=== PATIENT | female | born 1975 | race Caucasian/White ===

== ENCOUNTER 2016-12-17 06:33 | Day surgery (SDC) | payer OTHER ==
[~2016-12-17 06:33] MED LIST: Buffered Lidocaine 0.9% SYRIN* 5 ML/SYR SYRINGE INTRADERM ONE; Buffered Lidocaine 0.9% SYRIN* 5 ML/SYR SYRINGE ONE; Famotidine IV* 10 MG/ML 2 ML (20 mg) IV ONE; Famotidine IV* 10 MG/ML 2 ML (20 mg) ONE
[2016-12-17 06:44] LABS: Manual Entry Verification ROB0080; UR Preg Internal Control QC Line Present
[2016-12-17] MEDS ORDERED: Silver Nitrate/Potassium Nitr* 1 EA STICK ONE (07:14)
[2016-12-17] MEDS ORDERED: Midazolam* 1 MG/ML 5 ML VIAL (5 MG) ONE (07:38)
[2016-12-17] MEDS ORDERED: fentaNYL* 50 MCG/ML 2 ML VIAL (100 MCG VIAL) ONE (07:38)
[2016-12-17] MEDS ORDERED: Ondansetron INJ* 2 MG/ML VIAL ONE (07:39)
[2016-12-17] MEDS ORDERED: Dexamethasone IV* 4 MG/ML 1 ML (4 MG) ONE (07:39)
[2016-12-17] MEDS ORDERED: Propofol* 10 MG/ML 20 ML BTL IV PUSH ONE (07:39)
[2016-12-17] MEDS ORDERED: DiMENhydriNATE IV* 50 MG/ML VIAL ONE (07:39)
[2016-12-17] MEDS ORDERED: Lidocaine 2% PF * 5 ML VIAL ONE (07:39)
[2016-12-17] MEDS ORDERED: Ketorolac INJ* 30 MG/ML 1 ML VIAL ONE (07:39)
[2016-12-17] MEDS ORDERED: HYDROmorphone* 1 MG/ML 1 ML SYR IV PRN (08:07)
[2016-12-17] MEDS ORDERED: DiMENhydriNATE IV* 50 MG/ML VIAL IV PUSH PRN (08:07)
[2016-12-17] MEDS ORDERED: Acetaminophen TAB* 325 MG PO PRN (08:07)
[2016-12-17] MEDS ORDERED: oxyCODONE TAB* 5 MG TAB PO PRN (08:07)
[2016-12-17] MEDS ORDERED: Acetaminophen TAB* 325 MG ONE (08:52)
[2016-12-17 10:09] VITALS: BP 111/73
--- NOTE | 2016-12-17 12:54 | OP ---
DATE OF PROCEDURE: 12/17/16 [facility] DATE OF : 79 SURGEON: Bree Marinelli MD ANESTHESIA: General endotracheal. ANESTHESIOLOGIST: Seema Atkinson MD ANESTHESIA: General PRE-OP DIAGNOSIS: Multiparity, desires permanent sterilization. POST-OP DIAGNOSIS: Multiparity, desires permanent sterilization. OPERATIVE PROCEDURE: Hysteroscopy, placement of a Essure coil. ESTIMATED BLOOD LOSS: Minimal. FLUIDS: Crystalloid. DRAINS: 100 cc of clear urine drained via straight catheter prior to procedure. FINDINGS: The patient did have an incidental finding of an 1 cm cyst on her right labia minora. She had a normal- appearing uterine cavity, cervix, and vagina otherwise. DESCRIPTION OF PROCEDURE: The patient was thoroughly counseled prior to the procedure as to the permanency of sterilization as well as to the very small chance of failure of getting . Consents were signed. The procedure and recovery were reviewed. The patient was then taken to the operating room where she was given general anesthesia that was found to be adequate. She was prepped and draped in the dorsal lithotomy position in the [facility]. Exam under anesthesia revealed the previously mentioned findings. Two speculums were placed into the vagina to expose the cervix and the anterior lip of the cervix was grasped with a single-tooth tenaculum. The cervix was dilated until the hysteroscope could easily be inserted. The hysteroscope was then assembled and turned on and inserted into the uterine cavity. A normal- appearing uterine cavity was noted. Both ostia were easily visualized. The Essure device was opened and assembled and inserted to the hysteroscope. Attention was first turned to the patient's left ostia. The Essure device was inserted and released with one coil remaining in the uterine cavity. Then attention was turned to the patient's right ostia where a second Essure device was inserted and released with one coil remaining in the uterine cavity. The hysteroscope was removed from the uterus. The tenaculum was removed with minimal bleeding. The speculum was removed from the vagina. The patient was cleaned, awakened from anesthesia, moved to the stretcher, and taken to recovery room in stable condition. [id number] #: [id number] MTDD
== END 2016-12-17 10:40 | disposition home or self-care (01) ==
LOC: OR 06:33
PROVIDERS: ATTEND Obstetrics & Gynecology
DX: Z30.2 Encounter for sterilization (principal)
CPT/HCPCS: 36415; 81025; 86850; 86900; 86901; A9270-GY; J1100; J1240; J1885; J2250; J2405; J2704; J3010; J7306